=== PATIENT | male | born 1985 | race Caucasian/White ===

== ENCOUNTER 2017-04-28 07:24 | Emergency (ER) | payer OTHER ==
[2017-04-28] MEDS ORDERED: KETOROLAC 60 MG/2 ML VIAL IM STA (07:55)
[2017-04-28] MEDS ORDERED: LIDOCAINE PATCH 5% TOP STA (07:55)
--- NOTE | 2017-04-28 08:02 | ED Physician Documentation ---
History of Present Illness - Stated complaint Stated Complaint: BACK PX/2ND TO LIFITING - Chief complaint Chief Complaint: Back Pain - Additonal information Additional information: hx from pt healthy 31 AD [place] male was lifting weight s yesterday and hurt his right lower back pain and limited ROM pain rad to buttock and uppaer lat thigh but no further no numbness or weakness denies saddle anesthesia no incontinence no abd pain otherwise well Review of Systems Constitutional: denies: Fever, Chills Cardiac: denies: Chest pain / pressure Respiratory: denies: Dyspnea GI: denies: Abdominal Pain : denies: Incontinent Musculoskeletal: reports: Back pain Neurologic: denies: Focal weakness, Numbness Endocrine: denies: Easy bruising / bleeding Immunocompromised: denies: Immunocompromised PD PAST MEDICAL HISTORY - Past Medical History Past Medical History: No - Past Surgical History Past Surgical History: No - Present Medications Home Medications: Ambulatory Orders Medication Instructions Recorded Confirmed Carisoprodol [Soma] 350 mg PO Q8H PRN #15 tablet 04/28/17 Ibuprofen [Motrin] 400 mg PO Q6H PRN #30 tablet 04/28/17 Lidocaine Patch 5% [Lidoderm Patch] 1 each TOP DAILY PRN #10 patch 04/28/17 - Allergies Allergies/Adverse Reactions: Allergies Allergy/AdvReac Type Severity Reaction Status Date / Time No Known Drug Allergies Allergy Verified 04/28/17 07:43 - Social History Does the pt smoke?: No Smoking Status: Never smoker Does the pt drink ETOH?: No Does the pt have substance abuse?: No - Immunizations Immunizations are current?: Yes PD ED PE NORMAL - Vitals Vital signs reviewed: Yes - Cardiac Cardiac: RRR - Respiratory Respiratory: No respiratory distress, Clear bilaterally - Abdomen Abdomen: Soft, Non tender - Back Back: No spinal TTP, Other (R lower lumbar mm TTP and limited ROM, no focal spine redness warmth or TTP) - Derm Derm: Normal color - Neuro Neuro: No motor deficit, No sensory deficit, Other (hip flexion, knee ext, foot dorsi plantar flexion and great toe ext 5/5, nl sensation, neg SLR, patellar DTR 2/4, no clonus) Results - Vitals Vitals: Vital Signs - 24 hr 04/28/17 07:29 Temperature 36.4 C L Heart Rate 85 Respiratory 18 Rate Blood Pressure 136/77 H O2 Saturation 100 Oxygen O2 Source Room air PD MEDICAL DECISION MAKING - ED course ED course: explained to pt that his exam does not suggest HNP and that MRI is not needed today rec conservative tx and PT and only consider imaging if sx persist or worsen despite conservative tx Departure - Departure Disposition: 01 Home, Self Care Clinical Impression: Low back strain Qualifiers: Encounter type: initial encounter Qualified Code(s): S39.012A - Strain of muscle, fascia and tendon of lower back, initial encounter Condition: Good Instructions: ED Low Back Pain Injury Follow-Up: BRYAN Mckeon [Provider Group] Prescriptions: Carisoprodol [Soma] 350 mg PO Q8H PRN #15 tablet PRN Reason: muscle spasm Ibuprofen [Motrin] 400 mg PO Q6H PRN #30 tablet PRN Reason: Pain Lidocaine Patch 5% [Lidoderm Patch] 1 each TOP DAILY PRN #10 patch PRN Reason: Pain Forms: Activity restrictions
[2017-04-28 08:32] VITALS: BP 127/75
== END 2017-04-28 08:32 | disposition home or self-care (01) ==
LOC: ED 07:24
DX: S39.012A Strain of muscle, fascia and tendon of lower back, initial encounter (principal); X50.9XXA Other and unspecified overexertion or strenuous movements or postures, initial encounter; Y93.B3 Activity, free weights
CPT/HCPCS: 96372; 99283; A9270

== ENCOUNTER 2018-02-02 08:23 | Outpatient (CLI) | payer OTHER ==
--- NOTE | 2018-02-02 19:46 | MRI Report ---
Reason: PAIN IN LEFT SHOULDER Procedure Date: 02/02/2018 Accession Number: [id number] / [id number] Procedure: MRI - Shoulder LT W/O CPT Code: FULL RESULT: EXAM: LEFT SHOULDER MRI WITHOUT CONTRAST EXAM DATE: 02/02/2018 09:05 AM. CLINICAL HISTORY: Pain in left shoulder. COMPARISON: None. TECHNIQUE: Multiplanar, multisequence T1-weighted and fluid-sensitive sequences of the shoulder without contrast. Other: None. FINDINGS: Acromioclavicular Region: The acromion is type I. Mild arthritis acromioclavicular joint. Negative for increased AC joint fluid. Reactive marrow edema distal clavicle and acromion at the acromioclavicular joint. Cortical irregularity with subcortical cystic degenerative changes AC joint. Relative low position of the acromion with lateral downsloping. The coracoacromial and coracoclavicular ligaments are intact. Negative for increased fluid subacromial/subdeltoid bursa. Glenohumeral Region: No subluxation. No effusion or loose bodies. The articular cartilage is unremarkable. The glenohumeral ligaments and joint capsule are unremarkable. Small fluid collection subscapularis bursa. Bone Marrow: No fracture, marrow edema or bone lesions. Labrum: The labrum is unremarkable on this nonarthrographic study. Musculature/Rotator Cuff: The infraspinatus and supraspinous tendons are negative for fluid signal defect to suggest tear. Focal intermediate signal is noted at the inferior aspect subscapularis tendon. Focal tendinosis versus small 2 mm thickness 4 mm tear bursal surface inferior subscapularis tendon. The rotator cuff muscles are without edema. There is rotator cuff muscle hypertrophy. Biceps Tendon: The long head of the biceps tendon and biceps ismael are intact. Other: The subcutaneous tissues are unremarkable. IMPRESSION: 1. Negative for infraspinatus or supraspinatus tendon tear. 2. Mild arthrosis acromioclavicular joint with associated reactive marrow edema and negative for increased AC joint fluid. 3. There is low position of the acromion and lateral downsloping of the acromion. Correlate with clinical shoulder impingement. 4. Possible small partial tear inferior aspect subscapularis tendon. [facility] MUSCULOSKELETAL RADIOLOGY SECTION
== END 2018-02-02 08:24 | disposition home or self-care (01) ==
LOC: DI 08:23
DX: M19.012 Primary osteoarthritis, left shoulder (principal)